=== PATIENT | male | born 2000 | race Caucasian/White ===

== ENCOUNTER 2024-02-09 21:59 | Emergency (ER) | payer BC ==
[2024-02-09] MEDS: lidocaine 1% 20 ML MDV SUBQ ONE (22:41)
[2024-02-10] MEDS: BUPIVACAINE 0.5% PF 10 ML VIAL SUBQ STA (00:01)
[2024-02-10] MEDS: BACITRACIN ZINC OINT 1 PACKET TOP STA (00:02)
[2024-02-10] MEDS: HYDROcod/ACET 5/325 Prepack 4 PO STA (00:21)
--- NOTE | 2024-02-10 00:33 | XRAY Report ---
PROCEDURE: Hand 3+V LT INDICATIONS: saw injury digits 1-3 TECHNIQUE: 3 views of the hand(s) acquired. COMPARISON: None. FINDINGS: Bones: Comminuted, minimally displaced fracture of the second distal phalanx. Nondisplaced fracture of the third distal digit phalanx. No other visible fractures. Normal bone alignment is maintained. N o suspicious bone lesions. Soft tissues: No suspicious soft tissue calcifications or masses. No radiodense foreign bodies in the soft tissue. IMPRESSION: Second and third distal phalanx fractures. If there is nail bed disruption, they should be treated as open fractures. Reviewed by: Anna Summers MD on 02/10/2024 12:31 AM PDT Approved by: Anna Summers MD on 02/10/2024 12:31 AM PDT Station ID: [id number]
--- NOTE | 2024-02-10 00:45 | ED Physician Documentation ---
PD HPI UPPER EXT INJURY - Stated complaint Stated Complaint: L HAND LAC - Chief complaint Chief Complaint: Laceration - History obtained from History obtained from: Patient - Additonal information Additional information: The patient comes to the emergency department chief complaint of laceration to left hand fingers from a saw. He states he was helping a friend work on his deck just before this when he accidentally cut his middle, index, and thumb of his left hand on a table saw he was using. The patient denies any other injuries. He is up-to-date on tetanus. He states that the affected digits are hurting a lot. PD PAST MEDICAL HISTORY - Past Medical History Past Medical History: No - Past Surgical History Past Surgical History: Yes Ortho: Other - Present Medications Home Medications: Ambulatory Orders Medication Instructions Recorded Confirmed HYDROcod/ACETAM 5/325 [[place] 5/325] 1 - 2 tablet PO Q6H PRN #14 tablet 02/10/24 cephALEXin [Keflex] 500 mg PO Q6H #28 cap 02/10/24 - Allergies Allergies/Adverse Reactions: Allergies Allergy/AdvReac Type Severity Reaction Status Date / Time No Known Drug Allergies Allergy Verified 02/09/24 22:09 - Social History Does the pt smoke?: No Smoking Status: Never smoker Does the pt drink ETOH?: Yes ETOH Use: Beer Does the pt have substance abuse?: No - Immunizations Immunizations are current?: No Immunizations: TDAP >10years/unknown - POLST Patient has POLST: No PD ED PE NORMAL - Vitals Vital signs reviewed: Yes - General General: Alert and oriented X 3, No acute distress, Well developed/nourished - HEENT HEENT: Atraumatic, EOMI, Moist mucous membranes - Neck Neck: Supple, no meningeal sign - Cardiac Cardiac: Strong equal pulses - Respiratory Respiratory: No respiratory distress - Derm Derm: Normal color, Warm and dry, No rash, Other (Jagged laceration through nails of Left index and middle finger with extension into skin by about 4 mm on each. Skin and tissue avulsion on the left thumb pad.) - Extremities Extremities: No deformity, Other (Flexion and extension intact in left thumb, second and third fingers.) - Neuro Neuro: Alert and oriented X 3 (Grossly), No motor deficit, No sensory deficit - Psych Psych: Normal mood, Normal affect Results - Vitals Vitals: Vital Signs - 24 hr 02/09/24 02/10/24 22:05 00:58 Temperature 36.3 C L Heart Rate 82 82 Respiratory 16 16 Rate Blood Pressure 109/65 117/67 O2 Saturation 100 99 Oxygen O2 Source Room air - Rads (name of study) Left hand x-ray series Relevant Findings:: Final report received, See rad report (Tuft fractures of second and third digits) Procedures - General procedure General procedure: Nail removal of left second and third fingers: Complexly lacerated nails were removed from the above listed digits, and nailbed lacerations repaired with 5-0 Vicryl, 3 sutures in each nailbed. - Laceration (location) Left index and middle fingers, and thumb. Length in cm: 5 Wound type: Irregular, Into subcut fat, Clean Neurovascular status: Sensory intact, Motor intact, Vascular intact Anesthesia: Lidocaine 1%, Other (Digital block) Wound preparation: Hibiclens, Irrigated copiously NS, Wound explored, To the base, Other (Nail removal on second and third digits.) Skin layer closure: Interrupted, Size #-0 - enter number (5.0), Sutures - enter # (8) Other: Patient tolerated well, No complications, Neurovascular intact, Dressing applied, Tetanus UTD - Regional nerve block - Minor Nerve block site: Digital - note digit(s) (Second and third left fingers) Right / left: Left Nerve block anesthesia: Lidocaine 2%, Marcaine 0.5% Nerve block aftercare: Excellent anesthesia, Patient tolerated well, No complications PD Medical Decision Making - ED course Complexity details: reviewed results, re-evaluated patient, considered differential, d/w patient ED course: The patient's lacerations were repaired as above and nails were removed. X-rays did demonstrate tuft fractures of the second and third digits. Keflex and Vicodin was prescribed for the patient. I did end up giving him a second digital block with Marcaine after initial digital block with lidocaine, due to increased pain and return of sensation. We have discussed that it will take a couple of months for his nails to grow back and that his sutures are absorbable. We have discussed the usual indications for return. Departure - Departure Disposition: 01 Home, Self Care Clinical Impression: Laceration, Open fracture of tuft of distal phalanx of finger Nailbed laceration, finger Qualifiers: Encounter type: initial encounter Qualified Code(s): S61.319A - Laceration without foreign body of unspecified finger with damage to nail, initial encounter Condition: Stable Instructions: ED Laceration Ext Sutr Stap Tape, ED Removal Nail Prescriptions: cephALEXin [Keflex] 500 mg PO Q6H #28 cap HYDROcod/ACETAM 5/325 [[place] 5/325] 1 - 2 tablet PO Q6H PRN #14 tablet PRN Reason: Pain Comments: Your finger lacerations and thumb laceration has been repaired with absorbable sutures. These will disintegrate on their own in the next 1 to 2 weeks usually. If they last longer than that you can get them snipped out if you wish. Your thumb wound was missing some skin and tissue and as such, the edges could not be brought entirely back together. A couple of sutures were placed to try to tighten up the tissue connections and enhance healing. Both your index and middle finger nails were removed because they were very chewed up by the saw. You have some cuts across the nail beds, the tissue that lies underneath the nails, and these were stitched. Most likely, you have bumpy nails when they do grow back. It usually takes a couple of months for nail to grow back in. Once the nailbed dries up and scabs over, you may leave your fingers open to air. You should not do any work with your left hand until your nailbeds are dry and healed up. You may return to work sooner and do work does not involve your left hand whenever you are ready. You have been given a prepack of Vicodin for pain, and a prescription for the same has been electronically transmitted to the [facility] pharmacy in [place]. Forms: PCP List, Activity restrictions Discharge Date/Time: 02/10/24 00:58
[2024-02-10 01:05] VITALS: BP 117/67; O2SAT 99
== END 2024-02-10 00:58 | disposition home or self-care (01) ==
LOC: ED 21:59
DX: S62.631B Displaced fracture of distal phalanx of left index finger, initial encounter for open fracture (principal); S62.633B Displaced fracture of distal phalanx of left middle finger, initial encounter for open fracture; W27.0XXA Contact with workbench tool, initial encounter; Y93.89 Activity, other specified; Y92.89 Other specified places as the place of occurrence of the external cause
CPT/HCPCS: 11760; 73130; 99283; A9270